=== PATIENT | male | born 1930 | race Caucasian/White ===

== ENCOUNTER 2019-03-10 21:13 | Inpatient (IN) ==
[2019-03-10] MEDS ORDERED: NS 1,000 ML IV ONE (22:42)
[2019-03-10 23:31] LABS: BASO# 0.03 X1000 (0.0-0.2); BASO% 0.3 % (0.0-0.8); EOS# 0.17 X1000 (0.0-0.7); EOS% 1.8 % (0.0-10.0); HEMATOCRIT 42.1 % (42.0-52.0); HEMOGLOBIN 13.7 g/dL (14.0-18.0); LYMPH# 1.37 X1000 (1.2-3.4); LYMPH% 14.7 % (20.5-51.1); MCH 31.7 PG (27-31); MCHC 32.5 g/dL (33-37); MCV 97.5 FL (81-99); MONO# 1.18 X1000 (0.11-0.59); MONO% 12.6 % (1.7-9.3); MPV 9.8 FL (7.4-10.4); NEUT# 6.59 X1000 (1.4-6.5); NEUT% 70.6 % (42.2-75.2); PLT 175 X1000 (130-400); RBC 4.32 XMIL (4.7-6.1); RDW 12.6 % (11.5-14.5); WBC 9.34 X1000 (4.8-10.8)
[2019-03-10 23:40] LABS: INR 0.95; PROTIME 12.8 Seconds (11.0-16.0)
[2019-03-11 00:34] LABS: AGAP 11; ALB/GLOB RATIO 1.2; ALBUMIN 3.5 g/dL (3.5-5.0); ALKALINE PHOSPHATASE 69 U/L (32-122); BUN 15 mg/dL (8-22); CALCIUM 9.4 mg/dL (8.8-10.2); CHLORIDE 102 mmol/L (98-107); COSMO 281; CREATININE 1.1 mg/dL (0.7-1.2); ESTIMATED GFR > 60; GLUCOSE 82 mg/dL (70-104); GOT 22 U/L (10-34); GPT 16 U/L (10-44); LIPASE 35 U/L (13-60); POTASSIUM 3.9 mmol/L (3.5-5.1); SODIUM 141 mmol/L (136-145); TCO2 28 mmol/L (25-35); TOTAL BILIRUBIN 0.59 mg/dL (0.20-1.00); TOTAL PROTEIN 6.4 g/dL (6.3-8.3)
--- NOTE | 2019-03-11 03:22 | PROVIDER DOCUMENTATION ---
This chart was entered by Jose Eduardo Vences Scribe, acting as scribe for Nicolasa Gr MD. HPI-Abdominal Pain/GI Problem - General Chief Complaint: GI Bleed Stated Complaint: RECTAL BLEEDING Time Seen by Provider: 03/10/19 22:48 Source: patient Allergies/Adverse Reactions: Patient Allergies Allergy/AdvReac Type Severity Reaction Status Date / Time Penicillins Allergy Severe ANAPHYLAXIS Verified 03/10/19 21:27 codeine Allergy Intermediate ITCHING Verified 03/10/19 21:27 Home Medications: Home Medication List Medication Instructions Recorded Confirmed Last Taken Type LISINOpril [Prinivil] 10 mg PO DAILY 12/04/12 03/10/19 12/04/12 08:00 History Apixaban [Eliquis] 5 mg PO BID 03/10/19 03/10/19 02/02/19 History Carvedilol [Coreg] 6.25 mg PO BID 03/10/19 03/10/19 Unknown History Donepezil [Aricept] 10 mg PO DAILY 03/10/19 03/10/19 Unknown History Enzalutamide [Xtandi] 40 mg PO Q6HR 03/10/19 03/10/19 Unknown History - History of Present Illness-ABD Nature of Presenting Problems: Pt is a 88 y/o M is brought to the ED by his family for rectal bleeding. Pt reports he went to use the toilet and he had bright red blood. He says he went a second time and did the same thing but the second time was much less. Family reports pt lives alone and is not complaint with medications and forgets things real easy. Family reports a hx of diverticulitis, 12cm of colon removed and prostate cancer. Pt denies pain. is on elequis but unclear when pt last took this Abdominal Pain Onset Location: reports: other (rectal bleeding) Severity in ED: reports: mild Onset/Duration: reports: this evening Timing: reports: still present Activities at Onset: reports: none Associated Symptoms: denies: back/neck pain, diarrhea, fever/chills, genitourinary problems, nausea, shortness of breath, vomiting, trouble walking Dark Stools Present?: reports: bright red blood Rectal Bleeding: reports: blood mixed with stool Review of Systems - Adult - REVIEW OF SYSTEMS - ADULT Constitutional: denies: chills, fever Eyes: reports: no symptoms reported Ears, Nose, Mouth & Throat: reports: no symptoms reported Cardiovascular: denies: chest pain, edema, palpitations Respiratory: denies: cough, shortness of breath Gastrointestinal: reports: rectal bleeding. denies: abdominal pain, nausea, vomiting Genitourinary: reports: no symptoms reported Musculoskeletal: denies: back pain, neck pain Integumentary: reports: no symptoms reported Neurological: denies: dizziness/vertigo, headache/migraines Psychiatric: reports: no symptoms reported Endocrine: reports: no symptoms reported Hematologic/Lymphatic: reports: no symptoms reported Allergic/Immunologic: reports: no symptoms reported All Other Systems: Reviewed and Negative Past History - Adult - PAST MEDICAL HISTORY-ADULT Review of Records: reports: Old Records Reviewed, Nursing Assessment Review, Medications Reviewed - SOCIAL HISTORY Smoking: non-smoker Substance Use: none/never Living Situation: alone Physical Exam-General - PHYSICAL EXAM-ADULT Initial Vital Signs Reviewed: Yes - CONSTITUTIONAL General Appearance: appears well, alert, no apparent distress - EYES Eyes: PERRL/EOMI, pink conjunctivae - HEAD, EARS, NOSE, MOUTH & THROAT HENMT: moist mucous membranes, normal ENT inspection - NECK Neck: non-tender, full range of motion, supple, normal inspection - RESPIRATORY Respiratory: lungs clear, normal breath sounds, no pleuratic chest pain, no respiratory distress, no accessory muscle use - CARDIOVASCULAR Cardiovascular: normal peripheral pulses, regular rate, rhythm - GASTROINTESTINAL (ABDOMEN) Abdominal Exam: normal bowel sounds, non tender, soft - MUSCULOSKELETAL Extremity: normal range of motion, non-tender, normal inspection - SKIN Integumentary: normal color, normal turgor, warm/dry - NEUROLOGIC Neurologic: grossly normal, no motor/sensory deficits - PSYCHIATRIC Psych/Mental Status: normal mood/affect, normal thought content, normal thought process, oriented x 3 Progress - PLAN OF CARE/RESULTS Progress/Plan/Lab Results: Vital Signs - 8 hr 03/10/19 21:19 Temperature 97.4 F L Pulse Rate 76 Respiratory Rate 18 Blood Pressure 183/97 O2 Sat by Pulse Oximetry 95 Orders Category Date Time Status IV Insertion ORDERED Care 03/10/19 22:[address] ABD/PELVIS W/IV CONT ONLY [CT] Stat Exams 03/10/19 22:42 Ordered CBC WITH DIFF [HEME] Stat Lab 03/10/19 22:42 Uncollected COMPREHENSIVE METABOLIC PANEL [CHEM] Stat Lab 03/10/19 22:42 Uncollected LIPASE [CHEM] Stat Lab 03/10/19 22:42 Uncollected PROTIME WITH INR [COAG] Stat Lab 03/10/19 22:42 Uncollected 0.9% Sodium Chloride Inj [Ns] 1,000 ml Med 03/10/19 22:42 Active IV 999 mls/hr GI bleed will further evaluate for degree of bleeding and causes. Vitals stable Result Diagrams: 03/10/19 22:34 03/10/19 22:34 - REASSESSMENT Reassessment #1 Status: improving (feeling well, vitals stable. no further bleeding while in the ED. Will admit for further evaluation and treatment. Discussed case with Dr. Newell, hospitalist, who will see and admit pt.) - CT/MRI 1 CT Study: Abdomen, Pelvis Impression: Normal (Per radiologist read: "extensive diverticulosis, no acute diverticulitis, multiple BL renal cysts") Departure - Departure Date of Disposition Decision: 03/11/19 Time of Disposition Decision: 03:20 DIAGNOSIS: GI bleed Qualifiers: GI bleed type/associated pathology: unspecified gastrointestinal hemorrhage type Qualified Code(s): K92.2 - Gastrointestinal hemorrhage, unspecified Disposition: ADMITTED INPATIENT 09 Certified Medical Emergency: Emergent Condition: Good - Critical Care Note This patient required my direct & personal management of CC.: No Attestation - Physician/ CHRIS Attestation Patient care was provided by Advanced Practice Provider:: No The physician spent face to face time with patient:: Yes Advanced Practice Provider documentation review:: Supervising physician onsite and consulted in the evaluation and care of this patient. The physician did have a face to face encounter with the patient. This chart was documented by the indicated scribe, (Jose Eduardo Vences Scribe) and accurately reflects the services I performed and decisions made by me, Nicolasa Gr MD, as attested by the provider's signature.
[2019-03-11] MEDS ORDERED: ZOFRAN IV PRN (03:48)
[2019-03-11 03:53] LABS: HEMATOCRIT 42.6 % (42.0-52.0); HEMOGLOBIN 13.7 g/dL (14.0-18.0)
[2019-03-11] MEDS: PROTONIX IV SCH ×2 (05:53→18:12)
[2019-03-11] MEDS: NS 1,000 ML IV SCH ×2 (05:53→20:11)
[2019-03-11] MEDS: SODIUM CHLORIDE 0.9% INJ SCH ×2 (05:53→18:12)
[2019-03-11 08:07] LABS: HEMATOCRIT 41.2 % (42.0-52.0); HEMOGLOBIN 13.3 g/dL (14.0-18.0)
--- NOTE | 2019-03-11 08:12 | HISTORY AND PHYSICAL ---
CHIEF COMPLAINT: Blood in stool. HISTORY OF PRESENT ILLNESS: This is a pleasant 88-year-old male who comes in to the emergency room. He sees Dr. Vale outpatient. He had complaints of having 2 stools with bright red blood in the toilet. He stated that there was blood in the toilet more the first time than the second. There was formed stool but still blood. He does have a history of diverticulitis and 12 cm of colon removed. He also has prostate cancer. I believe he is supposed to take Xtandi; however, his daughters at the bedside state that he is not very reliable with his medications. From what I understand, he has not been on Eliquis for around a month. He also has not been taking his blood pressure medications. The patient lives alone, but they check in on him and do his medications. I believe he was just started on Aricept for dementia a couple of weeks ago. At any rate, a CT was done in the emergency room and showed no acute diverticulitis, extensive diverticulosis and multiple bilateral renal cysts. He will be admitted for further evaluation and treatment. PAST MEDICAL HISTORY: Hypertension, prostate cancer, pacemaker implantation with chronic Eliquis. PAST SURGICAL HISTORY: Pacemaker implantation, colon resection, liver abscess drainage. SOCIAL HISTORY: Smoked for a little while in his 20s, has not smoked since. No alcohol. No illicit drugs. Lives alone. FAMILY HISTORY: Both parents from CVAs. ALLERGIES: Penicillin and codeine. HOME MEDICATIONS: Eliquis 5 mg p.o. b.i.d., carvedilol 6.25 mg p.o. b.i.d., Aricept 10 mg p.o. daily, Xtandi 400 mg p.o. q.6, and lisinopril 40 mg p.o. daily, but the family states that he has not been taking his medications reliably. REVIEW OF SYSTEMS: A 14-point review of systems was conducted with the patient. Pertinent positives listed above in the HPI. All other systems reviewed and negative. PHYSICAL EXAMINATION: VITAL SIGNS: Temperature 98.4, pulse 76, respirations 18, blood pressure 175/77, oxygen saturation 96% on room air. GENERAL: A pleasant 88-year-old male, alert and oriented x3, in no acute distress. HEENT: Head is atraumatic and normocephalic. Pupils are equal, round and reactive to light. Extraocular eye movements intact. Sclerae anicteric. Conjunctivae pink. Oral mucosa is moist. NECK: Supple. No JVD. No thyromegaly. Trachea is midline. No cervical lymphadenopathy. CARDIAC: Heart tones are distant. S1 and S2 are appreciated. No murmurs, gallops or rubs. LUNGS: Clear to auscultation bilaterally. No rhonchi, wheezes or rales. Symmetrical rise and fall with respirations. ABDOMEN: Soft, nondistended and nontender. Bowel sounds present in all 4 quadrants, normoactive. No pulsatile mass. No organomegaly. EXTREMITIES: No cyanosis, clubbing or edema. There are 2+ pedal pulses bilaterally. GENITOURINARY: No bladder distention. The patient voids. Otherwise deferred. NEUROLOGICAL: Alert and oriented x3. Cranial nerves II through XII are grossly intact. DIAGNOSTIC DATA: CT shows diverticulosis and bilateral renal cysts. LABORATORY DATA: WBC is 9.34, hemoglobin 13.7, hematocrit 42.1, platelet count 175. INR is 0.95. Chemistry panel within normal limits. ASSESSMENT: 1. Gastrointestinal bleed. 2. Hypertension. 3. Dementia. 4. Prostate cancer. 5. Possible noncompliance with medications according to family. PLAN: Admit the patient to the Medical Floor. Consult Dr. Sepulveda. Place the patient on Protonix 40 mg IV q.12 hours. Hold n.p.o. at this time. We will trend hemoglobin and hematocrit, which are stable. Hold all p.o. medications at this time. We will defer restarting to Dr. Vitor Vale, his primary care provider. Further recommendations based on clinical course. Dictated by APRIL Hoyos for Abbe Newell MD I have performed a face to face diagnostic evaluation. Labs/ Xrays- reviewed. Exam- Chest- clear, CV- regular.Abd- soft A/P- GI bleed- Admit,NPO, GI consult. Dr. Newell cc: APRIL Hoyos MD Russell T. Barr, MD [facility]
[2019-03-11 14:17] LABS: HEMOGLOBIN 13.1 g/dL (14.0-18.0)
--- NOTE | 2019-03-11 15:20 | Diag Imaging Result Doc PS360 ---
EXAM: CT ABD/PELVIS W/IV CONT ONLY - 03/10/2019 HISTORY: gi bleeding TECHNIQUE: CT abdomen/pelvis with intravenous contrast COMPARISON: 10/21/2015 FINDINGS: There are no acute abnormalities of the liver, spleen, adrenal glands, or pancreas identified. There are no calcified gallstones or pericholecystic inflammation identified. There are right renal cysts, largest which measures 9 cm. There are nonobstructing stones in bilateral kidneys. There is no obstructing renal stone or hydronephrosis identified. There are no substantial enlarged lymph nodes identified. There is tortuosity of the aorta and iliac arteries. There are atherosclerotic calcifications noted. There are lumbar spine degenerative changes noted. There is a broad-based small midline anterior pelvic wall hernia which contains small bowel, similar to prior. There is no evidence of bowel obstruction or other complicated features. The appendix is unremarkable. There is extensive colonic diverticulosis from the splenic flexure to the rectosigmoid junction. There is no indication of diverticulitis. There is no free air, free fluid, or abscess identified. IMPRESSION: Small broad-based midline anterior pelvic wall hernia which contains small bowel, similar to prior. No bowel obstruction. Extensive left colon diverticulosis. No indication of diverticulitis. No abscess. No free air. Nonobstructing stones in bilateral kidneys. No hydronephrosis. The on-call radiologist provided preliminary results at 2:48 AM on 03/11/2019. This exam was performed using automated exposure control, adjustment of mA or kV according to patient size, and/or use of iterative reconstruction technique. Electronically signed by Derick Sanon 03/11/2019 3:17 PM
[2019-03-11 19:50] LABS: HEMATOCRIT 40.1 % (42.0-52.0); HEMOGLOBIN 12.9 g/dL (14.0-18.0)
[2019-03-11 23:21] LABS: ALLEN TEST YES; BE -1.9 mmoll (-3.0-3.0); BLOOD TYPE ARTERIAL; HCO3-(ACT) 23.4 mmoll (20.0-26.0); O2(CT) 20.8 mL/dL (15.0-23.0); O2HB 96.2 % (95.0-99.0); PO2(98.6) 108 mmHg (60-100); SAMPLE BLOOD; SAO2 99.3 % (95.0-100.0); THB 15.3 g/dL (11.5-17.4); pH(98.6) 7.26 (7.35-7.45)
[2019-03-11 23:23] LABS: MODALITY NRB; PCO2(98.6) 59 mmHg (35-45)
--- NOTE | 2019-03-12 01:11 | GASTROENTEROLOGY CONSULTATION ---
DATE: 03/11/2019 REASON FOR CONSULT: GI bleed. HISTORY OF PRESENT ILLNESS: Mr. Borges is an 88-year-old male with a history of hypertension, prostate cancer and pacemaker. The patient is on Eliquis, but has not taken it for the last 1 month onward. As per his daughters, patient came in yesterday around 9 o'clock to the emergency room. He lives by himself in [place] and he mentioned noticing blood in the toilet which was bright red, but the patient has denied any abdominal pain, fever, chills, shortness of breath, nausea and vomiting. The patient does have a history of prostate cancer and a partial colon resection which was done almost 5 years back. The patient also had an abscess from the colon to the liver 5 years back. As far as bowel movements are concerned, the daughters mentioned that patient usually has diarrhea, but he is never constipated. The patient take Eliquis because of his pacemaker, but did mention that he has not taken his Eliquis for the last 1 month onward. The only new medication that was started was Aricept 2 weeks back because the patient is losing his short-term memory. Although the patient lives alone but his daughters keep a check on him and they go and see him and monitor him and administer his medications. Abdomen and pelvis CT was done on admission and the findings were small broad-based midline anterior pelvic wall hernia which contains small bowel similar to the prior. No bowel obstruction. Extensive left colon diverticulosis. No indication of diverticulitis. No abscess. No free air. Nonobstructing stones in the bilateral kidneys. No hydronephrosis. PAST MEDICAL HISTORY: Hypertension, prostate cancer, pacemaker on Eliquis. PAST SURGICAL HISTORY: Pacemaker surgery, partial colon resection, liver abscess drainage. SOCIAL HISTORY: The patient was a smoker. He used to smoke when he was in his 20s. Denies any alcohol, any illicit drugs, and he lives alone. FAMILY HISTORY: Both of his parents had CVA. ALLERGIES: He is allergic to penicillin and codeine. HOME MEDICATIONS: Lisinopril 10 mg daily, Coreg 6.25 mg twice a day, Xtandi 40 mg every 6 hours, Eliquis 5 mg twice a day, and Aricept 10 mg daily. REVIEW OF SYSTEMS: As per HPI. Otherwise, 12 point review of systems is negative. PHYSICAL EXAMINATION: Vital Signs: Temperature 98.2 degrees, pulse 77, respirations 19, blood pressure 163/85, oxygen saturation is 95% on room air. His weight is 189 pounds. BMI is 30.5 kg/m2. General: He is alert, oriented x2 and in no acute distress. Family at the bedside answering most of the questions. HEENT: Pale conjunctivae. No icterus. PERRL. Neck: Supple. Lungs: Clear to auscultation in the anterior chappell. Cardiovascular: Regular rate and rhythm. Abdomen: Soft, nontender, nondistended. Active bowel sounds heard in all 4 quadrants. Extremities: No clubbing. No cyanosis. No edema. Pedal pulses 2+ present bilaterally. Neurologic: He is alert, oriented x3. Nonfocal. Cranial nerves 2-12 grossly intact. LABORATORIES: Hemoglobin 12.9, hematocrit 40.1. PT 12.8, INR 0.95. Sodium 141, potassium 3.9, chloride 102, carbon dioxide 28, anion gap 11, BUN 15, creatinine 1.1, glucose 82, calcium 9.4, total bilirubin 0.59, AST 22, ALT 16, alkaline phosphatase 69, albumin 3.5, lipase 35. IMPRESSION: 1. Gastrointestinal bleed. 2. Hypertension. 3. Dementia. 4. Prostate cancer. 5. Noncompliance with the medications. PLAN: Mr. Borges is an 88-year-old male with a history of dementia and prostate cancer. The patient is currently receiving IV fluids normal saline at 60 mL. He is receiving Protonix twice a day for his GI bleed. His hemoglobin and hematocrit are 12.9 and 40.1. The patient is hemodynamically stable. We will continue to monitor the patient. We have started the patient on clear liquid diet. If he is able to tolerate it, we will advance his diet and we will continue to monitor his hemoglobin, hematocrit. Currently, the patient has not had any active bleeding. We will continue to monitor it and plan to do a colonoscopy if his condition worsens. This plan was discussed with Dr. Sepulveda. Thank you for your consult. Please call us for any further questions or concerns. Dictated by APRIL Snell for Jessica Sepulveda MD cc: MD Vitor Puentes MD MTDD
[2019-03-12 02:23] LABS: HEMATOCRIT 44.4 % (42.0-52.0); HEMOGLOBIN 14.6 g/dL (14.0-18.0)
--- NOTE | 2019-03-12 05:40 | Diag Imaging Result Doc PS360 ---
EXAM: CHEST-1 VIEW HISTORY: cat call TECHNIQUE: Single view COMPARISON: 05/01/2013 FINDINGS: The lungs are well expanded. The heart is not enlarged. There is a left-sided pacemaker. The vessels are not distended. There are no infiltrates. No effusion identified. IMPRESSION: Negative exam. Electronically signed by Oscar Brown 03/12/2019 5:37 AM
[2019-03-12] MEDS ORDERED: LASIX IV ONE (06:41)
[2019-03-12] MEDS: PROTONIX IV SCH (06:56)
--- NOTE | 2019-03-12 12:11 | GASTROENTEROLOGY PROGRESS NOTE ---
DATE: 03/12/2019 SUBJECTIVE: Mr. Borges is an 88-year-old male who is resting in bed. Family at the bedside. The patient is alert, oriented x 2. He has denied any nausea, vomiting, or abdominal pain. The patient did have an episode last night of , when he forgot where he was and had difficulty breathing, bipap machine was used for his breathing. Patient's short term memory is worsening likely dementia or delirium and he has been recently started on medication Aricept. OBJECTIVE: Vital Signs: Temperature 99.9 degrees, pulse 70, respirations 14, blood pressure 134/71, oxygen saturation is 92% on 2 L nasal cannula. The patient's weight is 189 pounds. BMI is 30.5 kg/m2. General: He is alert, oriented x3, and in no acute distress. HEENT: Pale conjunctivae. No icterus. PERRL. Neck: Supple. Lungs: Clear to auscultation in the anterior chappell. Cardiovascular: Regular rate and rhythm. Abdomen: Soft, nontender, nondistended. Active bowel sounds heard in all 4 quadrants. Extremities: No clubbing, no cyanosis, no edema. Pedal pulses 2+ present bilaterally. Neurologic: He is alert and oriented x3. IMAGING AND LABORATORY DATA: Hemoglobin is 14.6, hematocrit is 44.4. The patient's chest x-ray showed negative exam. IMPRESSION: 1. Gastrointestinal bleed. 2. Hypertension. 3. Dementia. 4. History of prostate cancer. 5. Noncompliance with the medications. PLAN: Mr. Borges is an 88-year-old male with a history of dementia and prostate cancer, GI has been following him for his GI bleed. The patient is currently receiving GI prophylaxis, Protonix 40 mg twice a day. The patient has denied any nausea, vomiting. His hemoglobin and hematocrit today are 14.6 and 44.4. He is hemodynamically stable, and he has not had any episodes of bleeding. He did have one bowel movement yesterday. We will continue to monitor the patient and follow the plan of care per PCP. This plan was discussed with Dr. Lindquist. We do not plan to do any procedures as of now, but if the patient's condition worsens or if he has any episodes of any bleeding, we may plan to do a colonoscopy. This plan was discussed with Dr. Lindquist. Please call us for any further questions or concerns. Dictated by APRIL Snell for Betito Lindquist MD cc: MD Vitor Sarah MD I have seen and examined the patient myself and I agree with the above plan of care. Discussed the above with the patient and family at bedside and all questions were answered. MEGHNA
[2019-03-12] MEDS: ARICEPT PO SCH (23:00)
[2019-03-12] MEDS: COREG PO SCH (23:00)
--- NOTE | 2019-03-13 08:29 | DISCHARGE SUMMARY ---
ADMISSION DATE: 03/11/2019 DISCHARGE DATE: 03/13/2019 FINAL DIAGNOSIS: 1. Rectal bleeding, probably diverticular. 2. History of paroxysmal atrial fibrillation, on Eliquis. 3. Alzheimer's dementia with suspected medication noncompliance. 4. Essential hypertension. 5. Prostate cancer. PRESENT ILLNESS: Mr. Lewis is an 88-year-old gentleman, who presented to the emergency room after having 2 stools accompanied by bright red blood in the toilet. He has a history of previous diverticulosis and previously had colon surgery for sigmoid diverticulitis. He also has prostate cancer and a history of paroxysmal atrial fibrillation. His family reported that he very likely has been noncompliant with most of his medications if not all of them for several weeks. Physical examination revealed normal vital signs with blood pressure 175/77. He was alert and oriented x2, talkative, and interactive. His neck was supple. Lungs were clear. Cardiac exam: Regular rate and rhythm with pacemaker rhythm on telemetry. Abdomen was nontender. A CT scan of the abdomen showed diverticulosis and bilateral renal cysts. Hemoglobin 13.7, hematocrit 42.1%, platelet count 175. HOSPITAL COURSE: He was admitted to the Medical floor, followed with serial hemoglobin and hematocrit, which were stable. He was restarted on his home medications with the exception of Eliquis. He did have a cat cough shortly after admission. After vigorous IV fluid resuscitation, he became hypoxic and delirious. He was given a dose of IV Lasix and briefly had some BiPAP support but resolved this fairly quickly. Previous echocardiogram was approximately a year ago and showed normal left ventricular function and it was felt not necessary to repeat this. He is discharged improved condition to return to my office in 8-14 days for transition of care visit. cc: Vitor Vale MD
[2019-03-13] MEDS: COREG PO SCH (08:40)
[2019-03-13] MEDS: ARICEPT PO SCH (08:40)
[2019-03-13] MEDS ORDERED: PRINIVIL PO SCH (09:00)
--- NOTE | 2019-03-13 12:27 | GASTROENTEROLOGY PROGRESS NOTE ---
DATE: 03/13/2019 SUBJECTIVE: Mr. Borges is an 88-year-old male. He is resting in bed. Family at the bedside. The patient is alert, oriented x2, and has denied any nausea, vomiting, or abdominal pain. The patient mentioned that he slept well last night, but he does not remember doing anything wrong. Patient mentioned that he .was getting discharged today. OBJECTIVE: Vital Signs: Temperature 98.9 degrees, pulse 72, respirations 18, blood pressure 114/57, oxygen saturation 92%. He is on room air. The patient's weight is 189 pounds. BMI is 30.5 kg/m2. General: He is alert, oriented x2, and in no acute distress. HEENT: Pale conjunctivae. No icterus. PERRL. Neck: Supple. Lungs: Clear to auscultation in the anterior chappell. Cardiovascular: Regular rate and rhythm. Abdomen: Soft, nontender, nondistended. Active bowel sounds heard in all 4 quadrants. Extremities: No clubbing, no cyanosis, no edema. Pedal pulses 2+ present bilaterally. Neurologic: He is alert and oriented x2. IMPRESSION AND PLAN: 1. Gastrointestinal bleed. 2. Hypertension. 3. Dementia. 4. History of prostate cancer. 5. Noncompliance with medication. PLAN: Mr. Borges is an 88-year-old male with a history of dementia and prostate cancer. GI is following him for his GI bleed. The patient has denied any active bleeding so far. His hemoglobin and hematocrit yesterday were 14.6 and 44.4. He is hemodynamically stable. The patient is currently receiving medication, Aricept 10 mg for his dementia. The patient is having positive bowel movements. He did have one today. He has discharge orders, and will be going home. We will continue to monitor the patient, and follow the plan of care per PCP. This plan was discussed with Dr. Hollins. Please call us for any further questions or concerns. Dictated by APRIL Snell for Deni Hollins MD cc: Vitor Vale MD [facility]
[2019-03-13 12:57] VITALS: BP 133/66
== END 2019-03-13 17:18 | disposition home or self-care (01) | DRG 378 ==
LOC: ED 03-11 00:29 → SUATTDRO 03-11 05:39 → 3N 03-11 05:39
PROVIDERS: ADMIT Internal Medicine; ATTEND Internal Medicine